=== PATIENT | female | born 1960 | race African-American/Black ===

== ENCOUNTER → 2018-10-09 | Outpatient (CLI) | payer OTHER ==
[~2018-10-09] VITALS: Ht 167.6 cm; Wt 114.3 kg
[~2018-10-09] MED LIST: BUSPIRONE HCL10 MG PO; CARAFATE 1 GM TA1 GM PO; COLCHICINE0.6 MG PO; CYMBALTA60 MG PO; DOXYCYCLINE 10100 MG PO; FLUTICASONE PRO15 GM; FROVA2.5 MG PO; IBUPROFEN 800800 M1 PO; LYRICA 75 MG CA75 MG PO; MELOXICAM15 MG PO; OLMSRTN-AMLDPN1 EAC4 PO; OMEPRAZOLE-BIC1 EAC1 PO; PROBENECID-COL1 EACH PO; SINGULAIR 10 MG10 M1 PO; TRAMADOL 50 MG50 MG PO; XYZAL5 MG PO; ZANAFLEX4 MG PO; [UNRECOGNIZED DRUG - REMARK]; [UNRECOGNIZED DRUG - REMARK]; [UNRECOGNIZED DRUG - REMARK]; [UNRECOGNIZED DRUG - REMARK]; [UNRECOGNIZED DRUG - REMARK]
--- NOTE | 2018-10-09 15:25 | EKG ---
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[place] : 1960 Requested By: Wale Rowe Order Number: [id number] MD: Reji Ching Measurements Intervals [place] Rate: 98 P: 22 MA: 178 QRS: -11 QRSD: 98 T: 132 QT: 369 QTc: 472 Interpretive Statements Sinus rhythm Probable left atrial enlargement LVH with secondary repolarization abnormality Baseline wander in lead(s) V2 No previous ECG available for comparison Electronically Signed On 10-09-2018 15:25:43 SERVICE ATTENDANT by Reji Ching [email or web address] <ELECTRONICALLY SIGNED> By: Reji Ching MD 10/09/18 1525 1045 1045 MD VINAY Krueger
--- NOTE | 2018-10-10 17:49 | P ---
[facility] [place] [address] PROCEDURE REPORT Name: JANELL PAULMICHELLE COOK Room #: REG [facility]#: [id number] Admission: 10/09/18 Attend Phys: Fabián Clayton MD Discharge: Date of : 56 Report #: [id number] THIS REPORT FOR: //name// CC: Corina Clayton DATE OF SERVICE: 10/09/2018 BRIEF HISTORY: The patient is a 57-year-old woman with longstanding history of reflux disease. She has been on a combination of omeprazole and bicarbonate, Zegerid 40 mg twice daily for reflux disease. Recently, she has been having problems with back pain and sciatica. Because of those symptoms she had been taking both meloxicam and ibuprofen as well as tramadol. She has also had some nausea and vomiting. PREOPERATIVE DIAGNOSIS: Increasing upper abdominal pain and reflux symptoms on proton pump inhibitor therapy with use of 2 nonsteroidals. POSTOPERATIVE DIAGNOSES: 1. Modest diffuse gastritis. 2. A 3-4 cm sliding type hiatus hernia. MEDICATIONS: Deep sedation with propofol per Anesthesia. SPECIMEN: Biopsies of the gastric mucosa. ESTIMATED BLOOD LOSS: 3 mL. PROCEDURE: EGD with biopsy. DESCRIPTION OF PROCEDURE: Prior to propofol sedation, procedure of upper endoscopy discussed with the patient as well as potential risks and its complications. She indicates she understands and desires to proceed. The patient placed in left decubitus position, the Olympus panendoscope inserted in the cervical esophagus under direct vision without difficulty. Examination of this organ through its entire length revealed normal esophageal mucosa down to the squamocolumnar junction. There was no evidence of ulcers, erosions or Cerda mucosa. A 3-4 cm sliding type of hiatus hernia was seen. The mucosa of the hernia was unremarkable. No ulcers or erosions were seen. The scope was advanced into the stomach, was examined on end view as well as retroflexed views. There was a pattern of diffuse gastritis. Despite the fact she has been using nonsteroidals, no ulcers or erosions were seen. Upon retroflexion, the hiatus hernia was seen. The mucosa was otherwise unremarkable other than the diffuse gastritis. In addition, multiple biopsies were obtained of the gastric mucosa. Again, no ulcers were seen. The pylorus was normal. Duodenal bulb was [address] [address] PROCEDURE REPORT Name: MICHELLE GRAJEDA Room #: REG [facility].#: [id number] Admission: 10/09/18 Attend Phys: Fabián Clayton MD Discharge: Date of : 56 Report #: [id number] normal. Postbulbar sweep was normal. At that point, the scope was slowly withdrawn and careful circumferential views confirmed the above findings. The patient tolerated the procedure well. After the scope was removed and immediately post procedure, the patient desaturated and had evidence of laryngospasm. She ultimately was intubated due to her laryngospasm. Please see Anesthesia note for additional comments. DISPOSITION: In spite of the fact she has been taking significant quantities of 2 nonsteroidals, I do not see evidence of ulcer disease. I would agree with continued use of her omeprazole/bicarbonate combination drug 40 mg twice daily. In addition, I would agree with sucralfate, which was started recently. She does take tramadol as well and this may contribute to symptoms of bloating and abdominal discomfort as well as some nausea. She was recently started on Lexapro, which may help with pain management. Hopefully, she will able to reduce her use of the pain medications. She should certainly avoid nonsteroidals at this point in time. I understand surgery is being considered as an option for her back problems. <ELECTRONICALLY SIGNED> By: Fabián Clayton MD 10/10/18 1749 1002 01 Fabián Clayton MD /nt
--- NOTE | 2018-10-13 16:06 | PATH ---
[facility] [address] [place] [address] PATHOLOGY RPT PROCEDURE Name: PEARL GRAJEDA Room #: REG [facility].#: [id number] Admission: 10/09/18 Date of : 56 Discharge: Report #: [id number] Path Case #: [id number] [facility] Accession Number: [id number] . 01 Material submitted: . BX OF GASTRITIS R/O H.PYLORI . 01 Clinical history: . Pre-op diagnosis: Reflux, abdominal pain Post-op diagnosis: Gastritis, hiatal hernia R/O H. pylori . 02 Diagnosis: Gastric mucosa, gastritis, endoscopic biopsy: - Mild reactive gastropathy. - Negative for intestinal metaplasia or atrophy. - Negative for Helicobacter pylori (properly controlled immunohistochemical stain performed). . (IUV:at;10/13/2018) QTA/10/13/2018 . 02 Electronically signed: . Ana Paula Bautista MD, Pathologist NPI- [id number] . 01 Gross description: . The specimen is received in formalin, labeled "Pearl Forbes, biopsy gastritis, R/O H. pylori". Received are six segments of pale nava soft tissue ranging in size from 0.2 to 0.5 cm in maximum dimensions. The specimen is submitted entirely in cassette A1. (CAA; 10/10/2018) QAC/QAC . 02 Pathologist provided ICD-10: K31.9 . 02 CPT . 750114, F40089 Specimen Comment: A courtesy copy of this report has been sent to Specimen Comment: [phone], . Specimen Comment: Report sent to / DR ESTRELLA Performed at: [address] [id number] MD Reynold Howard MD Phone: [phone] Performed at: [address] [address] PATHOLOGY RPT PROCEDURE Name: PEARL GRAJEDA [facility] [id number] Admission: 10/09/18 Date of : 56 Discharge: Report #: [id number] Path Case #: [id number] [address] [id number] MD Ana Paula Bautista MD Phone: [phone]
== END | disposition home or self-care (01) ==
LOC: GI 08:01
DX: K31.9 Disease of stomach and duodenum, unspecified (principal); K29.70 Gastritis, unspecified, without bleeding; K44.9 Diaphragmatic hernia without obstruction or gangrene; I10 Essential (primary) hypertension; F32.9 Major depressive disorder, single episode, unspecified; K21.9 Gastro-esophageal reflux disease without esophagitis; G47.33 Obstructive sleep apnea (adult) (pediatric); J45.909 Unspecified asthma, uncomplicated; F41.9 Anxiety disorder, unspecified; Z90.710 Acquired absence of both cervix and uterus; Z90.49 Acquired absence of other specified parts of digestive tract; Z87.19 Personal history of other diseases of the digestive system; Z98.890 Other specified postprocedural states; Z79.899 Other long term (current) drug therapy; Z88.6 Allergy status to analgesic agent
CPT/HCPCS: 62110; 62900; 70005